=== PATIENT | male | born 1970 | race Hispanic/Latino ===

== ENCOUNTER 2019-04-06 07:52 | Emergency (ER) | payer BC ==
[2019-04-06 08:17] LABS: BASOPHILS % (AUTO) 0.8 % (0.0-5.0); EOSINOPHILS % (AUTO) 3.6 % (0.0-8.0); HEMATOCRIT 44.4 % (42-54); LYMPHOCYTES % (AUTO) 21.3 % (21.0-51.0); MEAN CORPUSCULAR HEMOGLOBIN 31.6 pg (27.0-33.0); MEAN CORPUSCULAR HGB CONC 34.7 g/dL (32.0-36.0); MEAN CORPUSCULAR VOLUME 90.8 fL (79-99); MONOCYTES % (AUTO) 8.9 % (3.0-13.0); NEUTROPHILS % (AUTO) 65.4 % (40.0-77.0); PLATELET COUNT (AUTO) 182 K/uL (130-400); RED BLOOD CELL COUNT(AUTO) 4.88 MIL/uL (4.50-6.20); WHITE BLOOD COUNT (AUTO) 7.5 K/uL (4.8-10.8)
[2019-04-06 08:30] LABS: CREATININE 1.3 mg/dL (0.5-1.5); POTASSIUM 3.8 mmol/L (3.5-5.1)
[2019-04-06 08:32] LABS: INR 0.92 (0.85-1.15); PARTIAL THROMBOPLASTIN TIME 27.8 SEC (26.3-35.5); PROTHROMBIN TIME 9.7 SEC (9.6-11.6)
[2019-04-06 08:34] LABS: ALBUMIN 3.8 g/dL (3.5-5.0); BILIRUBIN,TOTAL 0.5 mg/dL (0.2-1.0); TOTAL PROTEIN, SERUM 7.3 g/dL (6.0-8.3)
[2019-04-06] MEDS ORDERED: ASPIRIN 325 MG TABLET ONE (09:08)
[2019-04-06] MEDS ORDERED: NITROGLYCERIN 1GM/1 INCH PACKET TD ONE (09:09)
[2019-04-06] MEDS ORDERED: MAG HYDROX/AL HYDROX/SIMETH ES 30 ML SUSP UDCUP ONE (10:29)
[2019-04-06] MEDS ORDERED: LIDOCAINE HCL 2% VISCOUS 15 ML UDCUP ONE (10:29)
== END 2019-04-06 11:18 | disposition home or self-care (01) ==
LOC: EDH 07:52
DX: R10.13 Epigastric pain (principal); R07.9 Chest pain, unspecified
CPT/HCPCS: 36415; 71045; 80053; 82550; 83690; 83880; 84484; 85025; 85610; 85730; 93005